=== PATIENT | female | born 1990 | race Caucasian/White ===

== ENCOUNTER 2017-01-08 21:18 | Emergency (ER) | payer OTHER ==
[2017-01-08 21:33] VITALS: BP 121/48
[2017-01-08] MEDS ORDERED: Oseltamivir CAP* 75 MG PO ONE ×2 (21:58)
[2017-01-08] MEDS ORDERED: Ciprofloxacin TAB* 500 MG PO ONE (21:58)
[2017-01-08] MEDS ORDERED: Ibuprofen TAB* 600 MG PO ONE (21:59)
[2017-01-08] MEDS ORDERED: Oseltamivir CAP* 75 MG ONE (22:07)
--- NOTE | 2017-01-08 22:11 | UC ---
Respiratory Complaint HPI - HPI Summary HPI Summary: 26 yo female with a <48 hour hx of f/c, myalgias, cough, runny nose, sore throat. 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 and was called in a script for UTI see has no UTI symptoms see has not picked up her cipro script yet - History of Current Complaint Chief Complaint: UCGeneralIllness Stated Complaint: FLU LIKE SYMPTOMS Time Seen by Provider: 01/08/17 21:25 Hx Obtained From: Patient Hx Last Menstrual Period: has IUD Onset/Duration: Sudden Onset, Lasting Days Timing: Constant Severity Initially: Severe Severity Currently: Moderate Pain Intensity: 8 Pain Scale Used: 0-10 Numeric Character: Cough: Nonproductive Aggravating Factors: Nothing Alleviating Factors: Nothing Associated Signs And Symptoms: Positive: Fever, Chills, Nasal Congestion, Sinus Discomfort - Allergies/Home Medications Allergies/Adverse Reactions: Allergies Allergy/AdvReac Type Severity Reaction Status Date / Time Amoxicillin Allergy Hives Verified 01/08/17 21:33 Penicillins Allergy Hives Verified 01/08/17 21:33 PMH/Surg Hx/FS Hx/Imm Hx Previously Healthy: Yes - Surgical History Surgical History: Yes Surgery Procedure, Year, and Place: t&a - Family History Known Family History: Positive: Hypertension - Social History Alcohol Use: Occasionally Substance Use Type: None Smoking Status (MU): Never Smoked Tobacco - Immunization History Most Recent Influenza Vaccination: none Review of Systems Constitutional: Fever, Chills, Fatigue Skin: Negative Eyes: Negative ENT: Sore Throat, Nasal Discharge Respiratory: Cough Cardiovascular: Negative Gastrointestinal: Negative Genitourinary: Negative Motor: Negative Neurovascular: Negative Musculoskeletal: Myalgia Neurological: Negative Psychological: Negative All Other Systems Reviewed And Are Negative: Yes Physical Exam Triage Information Reviewed: Yes Appearance: Well-Appearing, No Pain Distress, Well-Nourished Vital Signs: Initial Vital Signs Temp 102.3 F 01/08/17 21:30 Pulse 135 01/08/17 21:30 Resp 17 01/08/17 21:30 BP 121/48 01/08/17 21:30 Pulse Ox 97 01/08/17 21:30 Vital Signs Reviewed: Yes Eyes: Positive: Conjunctiva Clear ENT: Positive: Hearing grossly normal, Nasal congestion, Nasal drainage, TMs normal. Negative: Tonsillar swelling, Tonsillar exudate, Trismus, Muffled/ hoarse voice Dental: Negative: Abscess @ Neck: Positive: Supple, Nontender Respiratory: Positive: Lungs clear, Normal breath sounds, No respiratory distress, No accessory muscle use Cardiovascular: Positive: RRR, No Murmur, Tachycardia Musculoskeletal: Positive: ROM Intact, No Edema Neurological: Positive: Alert Psychological Exam: Normal Skin Exam: Normal UC Diagnostic Evaluation - Laboratory O2 Sat by Pulse Oximetry: 97 - normal/not hypoxic Respiratory Course/Dx - Differential Dx/Diagnosis Provider Diagnoses: influenza Discharge - Discharge Plan Condition: Stable Disposition: HOME Prescriptions: Benzonatate CAP* [Tessalon CAP*] 100 - 200 mg PO TID PRN #28 cap PRN Reason: Cough Ibuprofen TAB* [Motrin TAB*] 600 mg PO QID PRN #40 tab PRN Reason: Pain Oseltamivir CAP* [Tamiflu CAP*] 75 mg PO BID #8 cap Patient Education Materials: Influenza (ED) Forms: *Work Release Referrals: Zara Schaefer PA [Primary Care Provider] - 3 Days (if not better) Additional Instructions: rest fluids start you cipro as you doctor directed
== END 2017-01-08 22:20 | disposition home or self-care (01) ==
LOC: UCCORT 21:18
DX: J11.1 Influenza due to unidentified influenza virus with other respiratory manifestations (principal); Z88.1 Allergy status to other antibiotic agents; Z88.0 Allergy status to penicillin
CPT/HCPCS: 87502; 99213; A9270-GY; G0463

== ENCOUNTER 2018-04-06 10:38 | Emergency (ER) | payer BC, OTHER ==
[2018-04-06 12:01] VITALS: BP 120/55
[2018-04-06] MEDS ORDERED: Sulfamethox/Trimethoprim DS 800/160* TAB PO ONE (12:16)
[2018-04-06] MEDS ORDERED: metroNIDAZOLE TAB* 250 MG PO ONE (12:16)
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
--- NOTE | 2018-04-06 12:29 | RAD ---
INDICATION: Right thumb injury COMPARISON: None TECHNIQUE: AP, lateral, and oblique views were obtained. FINDINGS: There is no acute fracture or dislocation. There is no significant soft tissue swelling. IMPRESSION: NO FRACTURE OR FOREIGN BODY.
== END 2018-04-06 13:15 | disposition home or self-care (01) ==
LOC: UCCORT 10:38
DX: S63.601A Unspecified sprain of right thumb, initial encounter (principal); W50.3XXA Accidental bite by another person, initial encounter; Y93.9 Activity, unspecified; Y92.9 Unspecified place or not applicable; Z88.0 Allergy status to penicillin
CPT/HCPCS: 99213; A9270-GY; G0463

== ENCOUNTER 2018-07-06 11:03 | Emergency (ER) | payer BC, OTHER ==
[2018-07-06 13:56] VITALS: BP 100/44
[2018-07-06] MEDS ORDERED: Ondansetron ODT TAB* 4 MG PO ONE (14:11)
--- NOTE | 2018-07-06 14:11 | UC ---
FLU HPI - HPI Summary HPI Summary: Pt presents with c/o nausea and vomiting, body aches, left flank pain and subjective fever. Pt reprots vomiting 4 X's yesterday and 1X this morning. States "unable to keep any thing down". Pt states that she is "overworked and that she works 60-72 hours" per week. - History of Current Complaint Chief Complaint: UCGeneralIllness Stated Complaint: BODY ACHES,VOMITING Time Seen by Provider: 07/06/18 14:05 Hx Obtained From: Patient Hx Last Menstrual Period: 06/22/18 ?: No Onset/Duration: Sudden Onset, Lasting Days, Still Present Severity Currently: Mild Severity Initially: Mild Pain Intensity: 4 Associated Signs & Symptoms: Positive: Fever, Myalgia, Vomiting - Risk Factors Influenza Risk Factors: Negative - Allergy/Home Medications Allergies/Adverse Reactions: Allergies Allergy/AdvReac Type Severity Reaction Status Date / Time amoxicillin Allergy Hives Verified 07/06/18 13:45 Penicillins Allergy Hives Verified 07/06/18 13:45 Home Medications: Home Medications Ibuprofen TAB* [Advil TAB*] 400 mg PO Q6H PRN 07/06/18 [History Confirmed ] PMH/Surg Hx/FS Hx/Imm Hx Previously Healthy: Yes - Surgical History Surgical History: Yes Surgery Procedure, Year, and Place: t&a - Family History Known Family History: Positive: Hypertension - Social History Occupation: Employed Full-time Lives: With Family Alcohol Use: None Substance Use Type: None Smoking Status (MU): Never Smoked Tobacco Have You Smoked in the Last Year: No - Immunization History Most Recent Influenza Vaccination: none Most Recent Tetanus Shot: 2017 Vaccination Up to Date: Yes Review of Systems Constitutional: Fever, Fatigue Skin: Negative Eyes: Negative ENT: Negative Respiratory: Negative Cardiovascular: Negative Gastrointestinal: Vomiting, Nausea Genitourinary: Other - left flank pain Motor: Negative Neurovascular: Negative Musculoskeletal: Negative Neurological: Negative Psychological: Negative Is Patient Immunocompromised?: No All Other Systems Reviewed And Are Negative: Yes Physical Exam Triage Information Reviewed: Yes Appearance: Well-Appearing Vital Signs: Initial Vital Signs Temp 98 F 07/06/18 13:46 Pulse 93 07/06/18 13:46 Resp 18 07/06/18 13:46 BP 100/44 07/06/18 13:46 Pulse Ox 99 07/06/18 13:46 Vital Signs Reviewed: Yes Eye Exam: Normal ENT Exam: Normal Dental Exam: Normal Neck exam: Normal Respiratory Exam: Normal Cardiovascular Exam: Normal - elevated pulse rate noted Abdominal Exam: Normal Abdomen Description: Positive: CVA Tenderness (L) Musculoskeletal Exam: Normal Neurological Exam: Normal Psychological Exam: Normal Skin Exam: Normal Flu Course/Dx - Course Course Of Treatment: I discusssed my concern with the pt regarding her UA and her c/o left flank pain. Pt stated that she is feeling Ok and she agreed to seek care immediately at the closest ER if her symptoms worsened. Pt verbalized udnerstanding and agreed to plan of care. I explained to the pt my concern for pyelonephritis and she verbalized udnerstanding and agreed to plan of care. - Differential Dx/Diagnosis Provider Diagnoses: UTI. uncomplicated pyelonephritis Discharge - Sign-Out/Discharge Documenting (check all that apply): Patient Departure All imaging exams completed and their final reports reviewed: No Studies - Discharge Plan Condition: Stable Disposition: HOME Prescriptions: Ciprofloxacin TAB* [Cipro 500 MG TAB*] 500 mg PO Q12H #14 tab Ondansetron TAB* [Zofran 4 MG Tab*] 4 mg PO Q8H PRN #15 tab PRN Reason: Nausea Phenazopyridine TAB* [Pyridium 100 mg TAB*] 100 mg PO Q8H #6 tab Patient Education Materials: Urinary Tract Infection in Women (DC) Forms: *Work Release Referrals: Zara Schaefer PA [Primary Care Provider] - If Needed - Billing Disposition and Condition Condition: STABLE Disposition: Home
[2018-07-06] MEDS ORDERED: Ciprofloxacin TAB* 250 MG PO ONE (14:30)
== END 2018-07-06 14:39 | disposition home or self-care (01) ==
LOC: UCCORT 11:03
DX: N39.0 Urinary tract infection, site not specified (principal); N12 Tubulo-interstitial nephritis, not specified as acute or chronic; Z88.0 Allergy status to penicillin
CPT/HCPCS: 81003; 84702; 87077; 87086; 87186; 99212; A9270-GY; G0463

== ENCOUNTER 2019-04-30 19:56 | Emergency (ER) | payer BC ==
--- OUTSIDE RECORDS SUMMARY | 2019-04-30 20:07 | XMS REPORT | Continuity of Care Document ---
:1990 Author Organization [facility] Allergies and Intolerances Code Code System Allergy Type Reaction Severity Start End Date Status Substance Date 723 RXNorm Amoxicillin Drug Rash Unknown Active allergy (disorder) 19610 RXNorm penicillin Drug Hives Unknown Active allergy (disorder) Medications No Known Medications Problems No Data in the system Procedures No data in the system Results Laboratory Results Order: CBC DIFF Specimen Source: Body Site : Legend: (G,H)=High, (GG,HH,CH,#H)=Above High Threshold, (#,L)=Low, (##,CL,#L, LL)=Below Low Threshold, (C,CC,CA,#A,A)=Abnormal LOINC Test Result Flag Range Units Date 6690 1WBC # Bld Auto 10.8 4.8-10.8 K/uL 03/31/2019 22:04 70609-8 1RBC # Bld 4.33 4.20-5.40 M/uL 03/31/2019 22:04 718-7 1Hgb Bld-mCnc 13.6 12.0-16.0 gm/dL 03/31/2019 22:04 4544-3 1Hct VFr Bld Auto 38.5 36.0-48.0 % 03/31/2019 22:04 787-2 1MCV RBC Auto 88.9 80.0-100.0 fL 03/31/2019 22:04 10993-8 1MCHC RBC-mCnc 35.4 30.0-36.5 % 03/31/2019 22:04 48335-8 1MCH RBC Qn 31.5 27.0-34.0 pg 03/31/2019 22:04 66638-2 1RDW RBC 11.0 11.0-15.0 % 03/31/2019 22:04 777-3 1Platelet # Bld Auto 157 130-450 K/uL 03/31/2019 22:04 74403-8 1PMV Bld Auto 10.0 6.0-12.0 fL 03/31/2019 22:04 751-8 1Neutrophils # Bld Auto 73 37-80 % 03/31/2019 22:04 43177-8 1Lymphocytes NFr Bld 19 10-50 % 03/31/2019 22:04 5905-5 1Monocytes NFr Bld Auto 6 0-12 % 03/31/2019 22:04 96426-9 1Eosinophil # Bld 2 <=8 % 03/31/2019 22:04 704-7 1Basophils # Bld Auto 0 <=3 % 03/31/2019 22:04 42291-4 1Neutrophils # Bld 7.9 1.8-8.6 K/uL 03/31/2019 22:04 731-0 1Lymphocytes # Bld Auto 2.1 0.5-5.0 K/uL 03/31/2019 22:04 742-7 1Monocytes # Bld Auto 0.6 0.0-1.3 K/uL 03/31/2019 22:04 41039-6 1Eosinophil # Bld 0.2 0.0-0.9 K/uL 03/31/2019 22:04 704-7 1Basophils # Bld Auto 0.1 0.0-0.3 K/ul 03/31/2019 22:04 Performing Lab Footnotes:[facility] - [id number] - [address] [place] [address] RAVI TOLBERT Order: COMPREHENSIVE PANEL Specimen Source: Body Site: Legend: (G,H)= High, (GG,HH,CH,#H)=Above High Threshold, (#,L)=Low, (##,CL,#L,LL)=Below Low Threshold, (C,CC,CA,#A,A)=Abnormal LOINC Test Result Flag Range Units Date 2951-2 1Sodium SerPl-sCnc 134 L 136-145 mmol/L 03/31/2019 22:04 2823-3 1Potassium SerPl-sCnc 3.5 3.5-5.2 mmol/L 03/31/2019 22:04 2075-0 1Chloride SerPl-sCnc 103 100-108 mmol/L 03/31/2019 22:04 8-9 1CO2 SerPl-sCnc 22 21-32 mmol/L 03/31/2019 22:04 2345-7 1Glucose SerPl-mCnc 81 70-100 mg/dL 03/31/2019 22:04 3094-0 1BUN SerPl-mCnc 11 7-21 mg/dL 03/31/2019 22:04 2160-0 1Creat SerPl-mCnc 0.6 0.6-1.3 mg/dL 03/31/2019 22:04 Interpretive Mariel: 1Normal Kidney Function or Mild Disease - GFR >OR=60 Chronic Kidney Disease - GFR 15-59 Renal Failure - GFR < 15 GFR not calculated on patients under 18 years of age. Calculated (estimated) GFR is based on the MDRD Study equation, which assumes a steady state for creatinine. Estimated GFR may not be appropriate for medication dosing. 92995-2 1Ca-I SerPl-mCnc 9.6 8.5-10.8 mg/dL 03/31/2019 22:04 28273-5 1GFR/BSA.pred SerPl-ArVRat >60 03/31/2019 22:04 77902-5 1Bilirub Bld-mCnc 0.3 0.0-1.2 mg/dL 03/31/2019 22:04 2885-2 1Prot SerPl-mCnc 7.0 6.4-8.2 gm/dL 03/31/2019 22:04 1751-7 1Albumin SerPl-mCnc 4.1 3.4-4.8 gm/dL 03/31/2019 22:04 6768-6 1ALP SerPl-cCnc 42 40-150 U/L 03/31/2019 22:04 1742-6 1ALT SerPl-cCnc <10 0-55 U/L 03/31/2019 22:04 1920-8 1AST SerPl-cCnc 14 5-37 U/L 03/31/2019 22:04 Performing Lab Footnotes:[facility] - [id number] - [address] [place] [id number] RAVI TOLBERT Order: PREG HCG QUANT BLOOD Specimen Source: Body Site: Legend: (G,H)= High, (GG,HH,CH,#H)=Above High Threshold, (#,L)=Low, (##,CL,#L,LL)=Below Low Threshold, (C,CC,CA,#A,A)=Abnormal LOINC Test Result Flag Range Units Date 18010-7 1B-HCG SerPl-mCnc 36,963 H <=5 mIU/mL 03/31/2019 22:04 1Approx Gest Age Approx BHCG Range Non- <3 1-2 Weeks 50-500 2-3 Weeks 100-5,000 3-4 Weeks 500-10,000 4-5 Weeks 1,000-50,000 5-6 Weeks 10,000-100,000 6-8 Weeks 15,000- 200,000 2-3 Months 5,000-200,000 2nd Trimester 3,000-50,000 3rd Trimester 1,000-50,000 Performing Lab Footnotes:[facility] - [id number] - [address] [place] [address] RAVI TOLBERT Blood Bank Results Order: TYPE AND SCREEN Specimen Source: Body Site: [facility] Code Test Result Date 150893 ABO/Rh Typing A Rh Negative 03/31/2019 22:04 Specimen Expiration Date 03/31/2019 22:04 [id number] Antibody Screen Negative 03/31/2019 22:04 Specimen Expiration Date 03/31/2019 22:04 Radiology Results Order: US-OB LIMITEDExam Completion Date:03/31/2019 21:35 OBSTETRICS REPORT (Signed Final 2018 11:17 pm) Patient Info ID #: [id number] : [birth year] (28 yrs)(F) Name: CONNER BLEVINS Visit Date: 03/31/2019 11:05 pm Performed By Performed By: Joanna Stahl Referred By: [facility] Emergency Dept. Location: [facility] ------ Service(s) Provided OB sonogram, complete , > or=14wks. [phone] Indications Other specified - related O26.899 conditions, unspecified trimester OB History Blood Height: 05'02 Weight (lb): 136 BMI: 24.87 Type: " : 4 Term: 2 Temo: 0 SAB: 1 TOP: 0 Ectopic: 0 Livin Evaluation Num Of Fetuses: 1 Preg. Location: Intrauterine Heart Rate(bpm): 167 Cardiac Activity: Present Lie: Active Presentation: Vertex Placenta : Right lateral P. Cord Insertion: Poorly seen Amniotic Fluid JUAN FV: Within normal limits -------- Biometry -------- BPD : 22.5 mmG.Age: 13w 5d HC: 87.3 mm G.Age: 13w 6d AC: 84.5 mm G.Age: 14w 5d FL: 11 mm G.Age: 13w 2d CI: 67.97 % 70 - 86 FL/HC: 12.6 % HC/AC: 1.03 1.14 - 1.31 FL/BPD: 48.9 % FL/AC: 13.0 % 20 - 24 Est. FW: 87 gm 0 lb 3 oz Gestational Age ------- -------- LMP: 17w 5d Date: 11/27/18 PAYAM: 09/03/19 U /S Today: 13w 6d PAYAM: 09/30/19 Best: 13w 6d Det. By: U/S (03/31/19) PAYAM: 09/30/19 -------- Comments -------- Ultrasound study ordered was directed by indications, patient history obtained at time of the study, as well as a selected review of the medical record. Impression Single intrauterine with cardiac activity. Dating is by today's biometry, consistent with 13w 6d which differs substantially from LMP dating. Ceci Alexandre MD Electronically Signed Final Report 03/31/2019 11:17 pm Electronically signed By: CECI ALEXANDRE Read By: CECI ALEXANDRE Date: 03/31/2019 23:17 Social History Code Code System Social History Observation Description Dates Observed [id number] [place] Current Smoking Status Never smoker UNK AdministrativeGender Sex Assigned At Unknown Vital Signs Code Code System Vitals Value Date 8310-5 LOINC Body Temperature 98.2 [degF] 03/31/2019 8865-8 LOINC Pulse Rate 82 {beats}/min 03/31/2019 9279-1 LOINC Respiratory Rate 18 /min 03/31/2019 39975-0 LOINC O2% BldC Oximetry 100 % 03/31/2019 8480-6 LOINC BP Systolic 96 mm[Hg] 03/31/2019 8462-4 LOINC BP Diastolic 62 mm[Hg] 03/31/2019 8302-2 LOINC Height 62 [in_i] 03/31/2019 77080-2 LOINC Weight 61.69 kg 03/31/2019 3140-1 LOINC Body surface area Derived from formula 1.62 m2 03/31/2019 19496-4 INC BMI (Body Mass Index) 25 kg/m2 03/31/2019 Goals Section No data in the system Health Concerns No data in the systemEncounter Diagnosis Date Code Code System Diagnosis Status O99.89 ICD10 OTH DZ COMP PREG CHILDBIRTH PUERPER Active Advance Directives *RHIO - CONSENT IS YES Directive Type Effective Date Cafeteria Attendant Notes Supporting Document Name Address Phone No Directive Type 03/31/2019 9:41:06 Not Specified Not Specified Not Specified None No specified PM Family History No data in the system Functional Status Code Functional Condition Code System Date Status Independent adls SNOMED CT 03/31/2019 Active Appears well nourished/hydrated SNOMED CT 03/31/2019 Active Immunizations No data in the system Medical Equipment No data in the system Mental Status Code Cognitive Condition Code System Date Status No acute distress SNOMED CT 03/31/2019 Active Oriented x [address] 03/31/[address] 03/31/2019 Active Assessment and Plan Assessments No data in the systemPlan Of Treatment No data in the systemPending Tests No data in the system Hospital Discharge Instructions No data in the system
--- OUTSIDE RECORDS SUMMARY | 2019-04-30 20:07 | XMS REPORT | Continuity of Care Document ---
:1990 Author Organization [facility] Address [address] [place], [place] [id number] Phone Care Team Providers Name Role Phone Micheline Medellin Unavailable Unavailable Allergies, Adverse Reactions, Alerts Substance Reaction Status No information Medications Medication Instructions Dosage Effective Dates (start - stop) Status Comments No information Problems Condition Effective Dates (start - Clinical Status Comments stop) Human immunodeficiency virus [HIV] - counseling Counseling, unspecified Procedures Procedure Date No information Results Test Name Date and Time Measure Units Reference Range Abnormal Flag Status Comments No information Advance Directives Directive Yes / No Effective Date File Name No information Encounters Encounter Practice Location Reason(s) Diagnoses Date Provider Providers Description For Visit Copied on Encounter [facility] [place] [address]. [facility] [address] [facility], [address], [place], [id number], [id number], [place]. tel:[phone] tel:[phone] [facility] [place] immunodeficiency [address]. Provider: [facility] virus [HIV] [address] [facility], [address], [address], [place], [address], [place], [place], [id number], [address], [place], [address]. [place] tel:[phone] tel:[phone] tel: [phone] healy Provider: NURSE [facility]. Family History Family Member Diagnosis Age At Onset No information Immunizations Vaccine Date Status Comments No information Payers Payer name Insurance type Covered constitution party ID Authorization(s) [facility] [id number] Social History Type Description Quantity Date Captured Comments Alcohol Use Details Unknown Caffeine Use Details Unknown Tobacco Use Status Unknown Smoking Status Unknown Sex Female Vital Signs Date / Height Weight BMI Pulse Blood Temperature Respiratory Body Head BMI Pulse Inhaled Time: Rate Pressure Rate Surface Circumference percentile [place] Area No information Chief Complaint And Reason For Visit No information Reason For Referral Reason For Referral No information Plan Of Treatment Date Type Action Status No information History Of Present Illness Encounter Date Complaint History Of Present Illness No information Functional Status Date Functional Assessment No information Medications Administered Medication Instructions Dosage Effective Dates (start - stop) Status Comments No information Instructions Date Instruction Additional Information No information Assessments Type Assessment Date No information Goals Health Concern Goal Type Priority Status Date No information Medical Equipment Description Device [place] Device Identifier Effective Dates (start - stop ) Status No information Mental Status Date Cognitive Assessment No information Health Concerns Observation Date No information Concern Status Date No information
[2019-04-30 20:16] VITALS: BP 108/67
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
[2019-04-30] MEDS ORDERED: cefTRIAXone VIAL(*) 1,000 MG VIAL IM ONE (20:56)
[2019-04-30] MEDS ORDERED: Azithromycin TAB* 250 MG PO ONE (20:58)
[2019-04-30] MEDS ORDERED: Lidocaine 1% MPF* 2 ML VIAL ONE (21:00)
[2019-04-30] MEDS ORDERED: cefTRIAXone VIAL(*) 250 MG VIAL ONE (21:08)
--- NOTE | 2019-05-03 08:04 | UC ---
- Progress Note Progress Note: Urine Cx: Prlim report: E COli > 100,000 cfu/ml Patient on keflex. Await final sensitivity report no change in plan. Course/Dx - Diagnoses Provider Diagnoses: STD (female), UTI (urinary tract infection) Discharge - Sign-Out/Discharge Documenting (check all that apply): Post-Discharge Follow Up All imaging exams completed and their final reports reviewed: No Studies - Discharge Plan Condition: Stable Disposition: HOME Prescriptions: Cephalexin CAP* [Keflex 500 CAP*] 500 mg PO Q8H #15 cap ValACYclovir (*) [Valtrex 1 GM(*)] 1 gm PO Q12H #14 tab Patient Education Materials: Urinary Tract Infection in Women (ED), Vaginitis ( ED) Referrals: Rodolfo Solorzano MD [Primary Care Provider] - As Soon As Possible Additional Instructions: 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 If your symptoms worsen or do not imporve, please go to the closest emergency room as soon as possible. - Billing Disposition and Condition Condition: STABLE Disposition: Home
[2019-05-04 13:54] LABS: Neisseria gonorrhoeae (GC) RNA Negative (Negative)
== END 2019-04-30 21:33 | disposition home or self-care (01) ==
LOC: UCCORT 19:56
DX: A64 Unspecified sexually transmitted disease (principal); N39.0 Urinary tract infection, site not specified; B96.20 Unspecified Escherichia coli [E. coli] as the cause of diseases classified elsewhere; Z88.0 Allergy status to penicillin
CPT/HCPCS: 81003; 84702; 87070; 87077; 87086; 87186; 87491; 87591; 96372; 99212; A9270-GY; G0463; J0696